=== PATIENT | female | born 1980 | race Caucasian/White ===

== ENCOUNTER 2020-02-16 10:50 | Emergency (ER) | payer SELFPAY ==
[2020-02-16 11:48] VITALS: BP 129/85
[2020-02-16] MEDS ORDERED: IBUPROFEN 800 MG TAB PO ONE (12:21)
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
== END 2020-02-16 13:27 | disposition home or self-care (01) ==
LOC: ED 10:50
DX: S39.012A Strain of muscle, fascia and tendon of lower back, initial encounter (principal); S29.011A Strain of muscle and tendon of front wall of thorax, initial encounter; Z91.018 Allergy to other foods; V89.2XXA Person injured in unspecified motor-vehicle accident, traffic, initial encounter; Y93.89 Activity, other specified; Y92.410 Unspecified street and highway as the place of occurrence of the external cause; Y99.8 Other external cause status
CPT/HCPCS: 71046; 72070; 99283